=== PATIENT | female | born 1970 | race Caucasian/White ===

== ENCOUNTER 2022-09-08 11:43 | Outpatient (CLI) | payer BC, SELFPAY ==
[2022-09-08 15:06] LABS: Chloride* 101 mmol/L (96-114); Sodium* 137 mmol/L (135-149)
[2022-09-08 15:07] LABS: Potassium* 4.2 mmol/L (3.6-5.1)
[2022-09-08 15:09] LABS: Blood Urea Nitrogen* 19 mg/dL (7-30); Carbon Dioxide* 29 mmol/L (20-32); Creatinine* 0.7 mg/dL (0.5-1.5); Estimated Glomerular Filt Rate 103 ml/min; Glucose* 81 mg/dL (60-115)
[2022-09-08 15:10] LABS: Calcium* 9.5 mg/dL (8.4-10.6)
[2022-09-08 16:36] LABS: HDL Cholesterol* 83 mg/dL (>=50); LDL Cholesterol Calculated 121 mg/dL (<100)
[2022-09-08 16:43] LABS: Cholesterol* 217 mg/dL (90-199); Triglycerides* 69 mg/dL (40-149)
[2022-09-10 15:27] LABS: Vitamin D 25 Hydroxy* 38 ng/mL (30-80)
[2022-09-10 17:05] LABS: Vitamin B12* 683 pg/mL (243-894)
== END 2022-09-08 11:44 | disposition home or self-care (01) ==
PROVIDERS: PCP Family Medicine; Visit Provider Emergency Medicine
DX: Z00.00 Encounter for general adult medical examination without abnormal findings (principal); L03.90 Cellulitis, unspecified; Z13.6 Encounter for screening for cardiovascular disorders
CPT/HCPCS: 80048; 80061; 82306; 82607; 83735

== ENCOUNTER 2022-12-03 11:15 | Outpatient (CLI) | payer BC, SELFPAY ==
--- NOTE | 2022-12-03 11:30 | CRLHL7_ITS ---
For Patients: As a result of the Cures Act, medical imaging exams and procedure reports are released immediately into your electronic medical record. You may view this report before your referring provider. If you have questions, please contact your health care provider. BILATERAL SCREENING MAMMOGRAM WITH COMPUTER-AIDED DETECTION AND TOMOSYNTHESIS TECHNIQUE: CC and MLO views were obtained. These mammographic images have been obtained using full-field digital technique. These mammographic images were interpreted with the benefit of computer-aided detection. Breast Tomosynthesis was used in this interpretation. COMPARISON FILM: US 11/26/21. Screenin12/01/21, 10/18/20, 10/14/19 FINDINGS: There are scattered areas of fibroglandular density IMPRESSION: There is no radiographic evidence for malignancy. ASSESSMENT: BI-RADS Category 1: Negative RECOMMENDATION: Routine screening mammogram in 1 year. A lay language report of this examination will be provided to the patient. Victor Hugo Ramos M.D. Diagnostic/Nuclear Medicine Radiologist [email or web address] Transcribed: 2:26 pm DW/Dictated by: Victor Hugo Ramos MD @ 12/03/2022 12:04:00 PM (Electronically Signed)
== END 2022-12-03 11:16 | disposition home or self-care (01) ==
LOC: MAMMO 11:16
PROVIDERS: PCP Family Medicine; Visit Provider Family Medicine
DX: Z12.31 Encounter for screening mammogram for malignant neoplasm of breast (principal)
CPT/HCPCS: 77063; 77067

== ENCOUNTER 2023-12-10 08:46 | Outpatient (CLI) | payer BC, SELFPAY ==
--- NOTE | 2023-12-10 08:45 | CRLHL7_ITS ---
For Patients: As a result of the Century Cures Act, medical imaging exams and procedure reports are released immediately into your electronic medical record. You may view this report before your referring provider. If you have questions, please contact your health care provider. BILATERAL SCREENING MAMMOGRAM WITH COMPUTER-AIDED DETECTION AND TOMOSYNTHESIS TECHNIQUE: CC and MLO views were obtained. These mammographic images have been obtained using full-field digital technique. These mammographic images were interpreted with the benefit of computer-aided detection. Breast Tomosynthesis was used in this interpretation. COMPARISON FILM: 12/03/22, 11/21/21, 10/18/20. FINDINGS: There are scattered areas of fibroglandular density. IMPRESSION: There is no radiographic evidence for malignancy. ASSESSMENT: BI-RADS Category 1: Negative RECOMMENDATION: Routine screening mammogram in 1 year. A lay language report of this examination will be provided to the patient. Tino Arango M.D. Diagnostic Radiologist [email or web address] SP/Dictated by: Tino Arango MD @ 12/10/2023 11:12:00 AM (Electronically Signed)
== END 2023-12-10 08:47 | disposition home or self-care (01) ==
LOC: MAMMO 08:48
PROVIDERS: PCP Emergency Medicine; Visit Provider Emergency Medicine
DX: Z12.31 Encounter for screening mammogram for malignant neoplasm of breast (principal)
CPT/HCPCS: 77063; 77067